=== PATIENT | female | born 1970 | race Hispanic/Latino ===

== ENCOUNTER 2025-06-21 07:20 | Day surgery (SDC) | payer MEDICAID ==
[2025-06-21] VITALS (12 sets, daily range): BP systolic 91–106; BP diastolic 43–55; PULSE 52–79; RESP 15–19; TEMP 97.1–98.2
[~2025-06-21] VITALS: Ht 149.9 cm; Wt 78.9 kg
[2025-06-21] MEDS: 0.9%NACL 1000ML 1,000 ML IV ONE (08:27)
[2025-06-21] MEDS ORDERED: MYCO500T5 PO (08:34)
[2025-06-21] MEDS ORDERED: FURO20TA4 PO (08:34)
[2025-06-21] MEDS ORDERED: CARI3CAP PO (08:34)
[2025-06-21] MEDS ORDERED: BENZ150C8 PO (08:34)
[2025-06-21] MEDS ORDERED: ATOR40TA69 PO (08:34)
== END 2025-06-21 10:50 | disposition home or self-care (01) ==
LOC: ENDO 07:20 → DAH 07:20 → ENDO 10:50
PROVIDERS: ATTEND Internal Medicine Gastroenterology
DX: R13.10 Dysphagia, unspecified (principal); K29.70 Gastritis, unspecified, without bleeding; B96.81 Helicobacter pylori [H. pylori] as the cause of diseases classified elsewhere; K44.9 Diaphragmatic hernia without obstruction or gangrene; K22.2 Esophageal obstruction; K29.50 Unspecified chronic gastritis without bleeding; J44.9 Chronic obstructive pulmonary disease, unspecified; F31.9 Bipolar disorder, unspecified; Z79.899 Other long term (current) drug therapy
CPT/HCPCS: 43249; 43239; J7030; J2704 ×2; C1726; A4620; A4215; J3490